=== PATIENT | male | born 1935 | race Caucasian/White ===

== ENCOUNTER 2016-09-25 18:39 | Inpatient (IN) | payer OTHER ==
[~2016-09-25] VITALS: Ht 157.5 cm; Wt 102.6 kg
[~2016-09-25 18:39] MED LIST: ASPIR-TRIN325 M1 PO; DAILY VALUE1 EACH PO; DOCUSATE SODIU100 MG PO; DUONEB 2.5-0.5 M3 ML AEROSOL; FUROSEMIDE40 MG PO; GLIPIZIDE ER2.5 MG PO; GLIPIZIDE XL10 MG PO; ISORDIL,SORBITR20 MG PO; JANTOVEN5 M1 J-TUBE; JANTOVEN5 MG PO; LASIX20 MG PO; LEVEMIR100 UNIT/2 SC; LISINOPRIL5 MG PO; LOPRESSOR25 MG PO; LOPRESSOR50 MG PO; METOPROLOL SUCC25 MG PO; METOPROLOL SUCC50 MG PO; NOVOLOG PE100 UNITS/ SC; OMEPRAZOLE MAGN20 MG PO; PANTOPRAZOLE SO40 MG PO; SPIRIVA RESPIMAT4 GM IH; TAMSULOSIN HCL0.4 MG PO; TYLENOL EXTRA500 MG PO; ZOCOR20 MG PO
[2016-09-25 19:21] LABS: HEMATOCRIT 37.6 % (38.0-50.0); MCHC 33.2 G/DL (30.0-36.0); MCV 84.3 FL (86-99); MEAN PLAT.VOLUME 9.7 uM^3 (9.0-12.4); PLATELET COUNT 157 K/uL (156-360); RBC DIS.WIDTH-CV 15.4 % (11.8-14.6); RBC DIS.WIDTH-SD 47.2 % (39-53); RED BLOOD COUNT 4.46 M/uL (4.00-5.50); WHITE BLOOD COUNT 6.7 K/uL (4.1-10.2)
[2016-09-25 19:39] LABS: CHLORIDE 107 mEq/L (99-109); POTASSIUM 4.3 mEq/L (3.7-5.4); SODIUM 138 mEq/L (136-147)
[2016-09-25 19:41] LABS: GLUCOSE 197 mg/dL (70-99)
[2016-09-25 19:42] LABS: ANION GAP 10 MEQ/L (2-14)
[2016-09-25 19:45] LABS: GFR ESTIMATE (CALCULATED) 57 mL/min/; UREA NITROGEN (BUN) 24 mg/dL (9-23)
[2016-09-25 20:45] LABS: ADD MIUA? YES; BILIRUBIN NEGATIVE; BLOOD SMALL; COLOR YELLOW ((YELLOW)); GLUCOSE (STRIP) NEGATIVE; KETONES NEGATIVE; LEUKOCYTES LARGE; NITRITE POSITIVE; PROTEIN (STRIP) NEGATIVE; SPECIFIC GRAVITY 1.013 (1.000-1.030); UROBILINOGEN 0.2 MG/DL (0.2-1.0)
[2016-09-25 21:19] LABS: BACTERIA 2+; EPITHELIAL CELLS RARE; MUCUS TRACE; RED BLOOD CELLS RARE /HPF (0-5); UCUL ADDED? YES
[2016-09-25 21:20] LABS: CASTS NONE SEEN /LPF; CRYSTALS NONE SEEN; WHITE BLOOD CELLS TNTC /HPF (0-5)
[2016-09-25 22:30] LABS: INTER. NORMALIZED RATIO 2.5; PROTHROMBIN TIME 26.1 (9.2-11.2); PTT 33.8 (25-32)
[2016-09-26] MEDS ORDERED: CIPRO500 MG PO (00:19)
[2016-09-26 03:37] LABS: EOSINOPHIL (%) 1.7 % (0-5); EOSINOPHIL COUNT 0.1 K/uL (0-0.3); IMMATURE GRANULOCYTE (%) 0.3 % (0.0-0.7); LYMPHOCYTE COUNT 1.1 K/uL (1.0-2.8); MONOCYTE (%) 8.1 % (3-12); MONOCYTE COUNT 0.5 K/uL (0-0.8); NEUTROPHIL (%) 72.7 % (45-76); NEUTROPHIL COUNT 4.8 K/uL (1.8-6.4)
[2016-09-26 04:33] VITALS: BP 130/61
[2016-09-26 08:30] VITALS: BP 138/64
[2016-09-26 08:59] LABS: POINT-OF-CARE METER ID UU14162513
[2016-09-26] MEDS ORDERED: WARFARIN SODIUM5 MG PO ×2 (10:04→10:05)
[2016-09-26] MEDS ORDERED: METOPROLOL SUCC50 MG PO (10:07)
[2016-09-26 10:46] LABS: INTER. NORMALIZED RATIO 3.2; PROTHROMBIN TIME 33.5 (9.2-11.2)
[2016-09-26 12:24] VITALS: BP 169/70
[2016-09-26 12:34] LABS: POINT-OF-CARE METER ID UU14162513
[2016-09-26] MEDS ORDERED: ISOSORBIDE MONO20 MG PO (13:27)
[2016-09-26] MEDS ORDERED: GLUCOTROL XL10 MG PO (13:28)
[2016-09-26] MEDS ORDERED: FUROSEMIDE20 MG PO (13:30)
[2016-09-26] MEDS ORDERED: OMEPRAZOLE20 MG PO (13:30)
[2016-09-26 16:00] VITALS: BP 166/79
[2016-09-26 17:47] LABS: POINT-OF-CARE METER ID UU14162513
[2016-09-26 21:39] LABS: POINT-OF-CARE METER ID UU14162513
[2016-09-26 21:46] VITALS: BP 106/59
[2016-09-27 01:01] VITALS: BP 122/68
[2016-09-27 05:43] VITALS: BP 144/82
[2016-09-27 06:48] LABS: EOSINOPHIL (%) 1.9 % (0-5); EOSINOPHIL COUNT 0.1 K/uL (0-0.3); HEMATOCRIT 36.6 % (38.0-50.0); IMMATURE GRANULOCYTE (%) 0.2 % (0.0-0.7); LYMPHOCYTE COUNT 1.4 K/uL (1.0-2.8); MCH 27.9 PG (29.0-34.0); MCHC 32.5 G/DL (30.0-36.0); MCV 85.9 FL (86-99); MEAN PLAT.VOLUME 10.6 uM^3 (9.0-12.4); MONOCYTE (%) 7.8 % (3-12); MONOCYTE COUNT 0.4 K/uL (0-0.8); NEUTROPHIL (%) 65.5 % (45-76); NEUTROPHIL COUNT 3.7 K/uL (1.8-6.4); PLATELET COUNT 155 K/uL (156-360); RBC DIS.WIDTH-CV 15.8 % (11.8-14.6); RBC DIS.WIDTH-SD 49.5 % (39-53); RED BLOOD COUNT 4.26 M/uL (4.00-5.50); WHITE BLOOD COUNT 5.7 K/uL (4.1-10.2)
[2016-09-27 07:13] LABS: ANION GAP 8 MEQ/L (2-14); CHLORIDE 107 MEQ/L (99-109); GFR ESTIMATE (CALCULATED) > 59 mL/min/; GLUCOSE 121 mg/dL (70-99); POTASSIUM 4.1 MEQ/L (3.7-5.4); SAMPLE HEMOLYSIS CHECK 0; SAMPLE ICTERIC CHECK 0; SAMPLE LIPEMIA CHECK 0; SODIUM 141 MEQ/L (136-147); UREA NITROGEN (BUN) 19 mg/dL (9-23)
[2016-09-27 07:48] LABS: POINT-OF-CARE METER ID UU13113831
[2016-09-27 08:13] VITALS: BP 147/75
[2016-09-27 11:47] VITALS: BP 144/70
[2016-09-27 12:19] LABS: POINT-OF-CARE METER ID UU13113700
[2016-09-27 16:19] VITALS: BP 140/78
[2016-09-27 17:31] LABS: POINT-OF-CARE METER ID UU13113831
[2016-09-27 21:32] LABS: POINT-OF-CARE METER ID UU13113700
[2016-09-28 00:12] VITALS: BP 136/82
[2016-09-28 04:35] VITALS: BP 132/80
[2016-09-28 06:15] LABS: INTER. NORMALIZED RATIO 2.9
[2016-09-28 08:00] VITALS: BP 183/86
[2016-09-28 12:00] VITALS: BP 118/59
[2016-09-28 16:00] VITALS: BP 134/64
[2016-09-28 21:16] LABS: POINT-OF-CARE METER ID UU13113700
[2016-09-28 21:27] VITALS: BP 146/76
[2016-09-29 06:01] VITALS: BP 132/71
[2016-09-29 07:13] LABS: INTER. NORMALIZED RATIO 3.1; PROTHROMBIN TIME 33.1 (9.2-11.2)
[2016-09-29 08:50] VITALS: BP 85/54
[2016-09-29 08:53] LABS: POINT-OF-CARE METER ID UU13113831
[2016-09-29 12:46] VITALS: BP 109/57
[2016-09-29 12:46] LABS: POINT-OF-CARE METER ID UU14162513
[2016-09-29] MEDS ORDERED: BACTRIM,SEPT1 TABLET PO (14:47)
[2016-09-29] MEDS ORDERED: COUMADIN2.5 MG PO (14:48)
[2016-09-30 10:02] LABS: POINT-OF-CARE METER ID UU13113700
== END 2016-09-29 16:21 | disposition home health service (06) | DRG 690 ==
LOC: EME 18:39 → 5WEST 09-26 01:59 → EDOF 09-26 01:59 → 5WEST 09-26 03:36
PROVIDERS: Hospitalist; Internal Medicine; Physician Assistant Medical
DX: N39.0 Urinary tract infection, site not specified (principal); I50.22 Chronic systolic (congestive) heart failure; I42.9 Cardiomyopathy, unspecified; Z68.41 Body mass index [BMI] 40.0-44.9, adult; E86.0 Dehydration; E78.5 Hyperlipidemia, unspecified; E11.9 Type 2 diabetes mellitus without complications; Z86.718 Personal history of other venous thrombosis and embolism; K21.9 Gastro-esophageal reflux disease without esophagitis; I44.7 Left bundle-branch block, unspecified; I11.0 Hypertensive heart disease with heart failure; Z96.643 Presence of artificial hip joint, bilateral; F17.220 Nicotine dependence, chewing tobacco, uncomplicated; Z91.81 History of falling; B96.20 Unspecified Escherichia coli [E. coli] as the cause of diseases classified elsewhere; R91.1 Solitary pulmonary nodule; N28.9 Disorder of kidney and ureter, unspecified; E66.01 Morbid (severe) obesity due to excess calories
CPT/HCPCS: 70450; 71020; 71250; 80048; 81003; 82948; 85025; 85027; 85610; 85730; 87040; 87077; 87086; 87186; 93005; 94799; 99202; 99281; 99285; J1335; J1815; J7030; J7050

== ENCOUNTER 2017-06-03 13:43 | Emergency (ER) | payer OTHER ==
[~2017-06-03] VITALS: Ht 165.1 cm; Wt 103.0 kg
[~2017-06-03 13:43] MED LIST changes: +BACTRIM,SEPT1 TABLET PO; +CIPRO500 MG PO; +COUMADIN2.5 MG PO; +FUROSEMIDE20 MG PO; +GLUCOTROL XL10 MG PO; +ISOSORBIDE MONO20 MG PO; +OMEPRAZOLE20 MG PO; +WARFARIN SODIUM5 MG PO
[2017-06-03 14:54] VITALS: BP 137/78
== END 2017-06-03 14:56 | disposition home or self-care (01) ==
LOC: EME 13:43
DX: H92.21 Otorrhagia, right ear (principal); H92.01 Otalgia, right ear; E78.5 Hyperlipidemia, unspecified; E11.9 Type 2 diabetes mellitus without complications; Z86.718 Personal history of other venous thrombosis and embolism; K21.9 Gastro-esophageal reflux disease without esophagitis; Z96.653 Presence of artificial knee joint, bilateral; I42.9 Cardiomyopathy, unspecified; R29.6 Repeated falls; Z96.641 Presence of right artificial hip joint; F17.220 Nicotine dependence, chewing tobacco, uncomplicated; Z79.84 Long term (current) use of oral hypoglycemic drugs
CPT/HCPCS: 99281; 99283

== ENCOUNTER 2017-07-14 13:38 | Emergency (ER) | payer OTHER ==
[~2017-07-14] VITALS: Ht 157.5 cm; Wt 144.0 kg
[2017-07-14 14:26] LABS: EOSINOPHIL (%) 5.6 % (0-5); EOSINOPHIL COUNT 0.3 K/uL (0-0.3); HEMATOCRIT 26.3 % (38.0-50.0); IMMATURE GRANULOCYTE (%) 0.2 % (0.0-0.7); INSTRUMENT ABS NEUTROPHIL CT 4.1 K/uL; LYMPHOCYTE COUNT 1.1 K/uL (1.0-2.8); MCH 27.8 PG (29.0-34.0); MCHC 32.3 G/DL (30.0-36.0); MCV 85.9 FL (86-99); MEAN PLAT.VOLUME 9.2 uM^3 (9.0-12.4); MONOCYTE (%) 8.8 % (3-12); MONOCYTE COUNT 0.5 K/uL (0-0.8); NEUTROPHIL (%) 67.3 % (45-76); NEUTROPHIL COUNT 4.1 K/uL (1.8-6.4); PLATELET COUNT 149 K/uL (156-360); RBC DIS.WIDTH-CV 14.4 % (11.8-14.6); RBC DIS.WIDTH-SD 44.7 % (39-53); RED BLOOD COUNT 3.06 M/uL (4.00-5.50); WHITE BLOOD COUNT 6.1 K/uL (4.1-10.2)
[2017-07-14 14:34] LABS: CHLORIDE 115 mEq/L (99-109); PTT 49.1 SEC (25-37); SODIUM 139 mEq/L (136-147)
[2017-07-14 14:35] LABS: MAGNESIUM 2.4 mg/dL (1.3-2.7)
[2017-07-14 14:37] LABS: GLUCOSE 88 mg/dL (70-99)
[2017-07-14 14:38] LABS: ANION GAP 8 MEQ/L (2-14); PROTHROMBIN TIME 63.6 SEC (10.2-12.9)
[2017-07-14 14:39] LABS: TOTAL BILIRUBIN 0.2 mg/dL (0.0-1.0)
[2017-07-14 14:40] LABS: ALKALINE PHOSPHATASE 45 IU/L (3-129); INTER. NORMALIZED RATIO 5.4
[2017-07-14 14:41] LABS: GFR ESTIMATE (CALCULATED) 34 mL/min/
[2017-07-14 14:42] LABS: UREA NITROGEN (BUN) 41 mg/dL (9-23)
[2017-07-14 14:47] LABS: TROP-I INTERPRETATION NEGATIVE; TROPONIN-I 0.02 ng/mL (0.0-0.30)
[2017-07-14] MEDS ORDERED: ANTIFUNGAL15 G1 TP (17:04)
[2017-07-14 17:18] VITALS: BP 101/54
== END 2017-07-14 17:36 | disposition home or self-care (01) ==
LOC: EME 13:38
PROVIDERS: Emergency Medicine
DX: S31.010A Laceration without foreign body of lower back and pelvis without penetration into retroperitoneum, initial encounter (principal); D68.9 Coagulation defect, unspecified; L30.4 Erythema intertrigo; D64.9 Anemia, unspecified; Z79.01 Long term (current) use of anticoagulants; I11.0 Hypertensive heart disease with heart failure; I50.9 Heart failure, unspecified; E11.9 Type 2 diabetes mellitus without complications; E78.5 Hyperlipidemia, unspecified; I25.2 Old myocardial infarction; K21.9 Gastro-esophageal reflux disease without esophagitis; F41.9 Anxiety disorder, unspecified; Z86.73 Personal history of transient ischemic attack (TIA), and cerebral infarction without residual deficits; Z86.718 Personal history of other venous thrombosis and embolism; Z96.653 Presence of artificial knee joint, bilateral; Z96.641 Presence of right artificial hip joint
CPT/HCPCS: 80053; 83735; 83880; 84484; 85025; 85610; 85730; 99281; 99285

== ENCOUNTER 2017-09-18 11:26 | Inpatient (IN) | payer OTHER ==
[~2017-09-18] VITALS: Ht 160 cm; Wt 102.0 kg
[~2017-09-18 11:26] MED LIST changes: +ANTIFUNGAL15 G1 TP; +METOPROLOL TART50 MG PO
[2017-09-18 12:51] LABS: HEMATOCRIT 21.9 % (38.0-50.0); MCH 21.4 PG (29.0-34.0); MCHC 30.1 G/DL (30.0-36.0); MCV 71.1 FL (86-99); NRBC (%) 0.3 /100 WBC (0-0); RBC DIS.WIDTH-CV 16.4 % (11.8-14.6); RBC DIS.WIDTH-SD 42.5 % (39-53); RED BLOOD COUNT 3.08 M/uL (4.00-5.50); WHITE BLOOD COUNT 7.6 K/uL (4.1-10.2)
[2017-09-18 12:53] LABS: CHLORIDE 99 mEq/L (99-109); POTASSIUM 4.9 mEq/L (3.7-5.4); SODIUM 126 mEq/L (136-147)
[2017-09-18 12:54] LABS: GLUCOSE 89 mg/dL (70-99)
[2017-09-18 12:57] LABS: HEMOGLOBIN 6.6 G/DL (12.5-16.6)
[2017-09-18 12:58] LABS: CREATININE 1.6 mg/dL (0.6-1.3); GFR ESTIMATE (CALCULATED) 44 mL/min/ (58.99-99999)
[2017-09-18 12:59] LABS: UREA NITROGEN (BUN) 21 mg/dL (9-23)
[2017-09-18] MEDS ORDERED: WARFARIN SODIUM5 MG PO (14:01)
[2017-09-18] MEDS ORDERED: BACTRIM,SEPT1 TABLET PO (14:02)
[2017-09-18 14:48] LABS: FOLIC ACID (FOLATE) > 22.0 NG/ML (5.0-22.0)
[2017-09-18 15:29] LABS: INTER. NORMALIZED RATIO 9.3
[2017-09-18 15:49] LABS: RETIC HGB EQUIVALENT 16.9 (28-36); RETICULOCYTE COUNT 1.8 % (0.5-1.8)
[2017-09-18 15:51] VITALS: BP 136/67
[2017-09-18 16:07] VITALS: BP 101/57
[2017-09-18 16:25] LABS: PLATELET CLUMPS PRESENT - PLATELET COUNT APPEARS ADQ.
[2017-09-18 17:46] VITALS: BP 146/65
[2017-09-18 21:42] LABS: HEMATOCRIT 24.8 % (38.0-50.0); HEMOGLOBIN 7.6 G/DL (12.5-16.6); MCV 73.4 FL (86-99)
[2017-09-18 22:03] LABS: INTER. NORMALIZED RATIO 8.3
[2017-09-18 22:05] LABS: PTT 60.2 SEC (25-37)
[2017-09-18 22:09] VITALS: BP 120/60
[2017-09-18 23:38] LABS: TROP-I INTERPRETATION NEGATIVE; TROPONIN-I 0.02 ng/mL (0.0-0.30)
[2017-09-18 23:43] LABS: CHLORIDE 98 MEQ/L (99-109); CREATININE 1.6 MG/DL (0.6-1.3); GFR ESTIMATE (CALCULATED) 44 mL/min/ (58.99-99999); GLUCOSE 54 mg/dL (70-99); POTASSIUM 4.6 MEQ/L (3.7-5.4); SODIUM 127 MEQ/L (136-147); UREA NITROGEN (BUN) 23 mg/dL (9-23)
[2017-09-19] VITALS (10 sets, daily range): BP systolic 115–145; BP diastolic 58–80
[2017-09-19 06:33] LABS: HEMATOCRIT 27.9 % (38.0-50.0); HEMOGLOBIN 8.7 G/DL (12.5-16.6); MCH 22.7 PG (29.0-34.0); MCHC 31.2 G/DL (30.0-36.0); MCV 72.7 FL (86-99); PLATELET COUNT 303 K/uL (156-360); RBC DIS.WIDTH-CV 17.3 % (11.8-14.6); RBC DIS.WIDTH-SD 45.2 % (39-53); WHITE BLOOD COUNT 9.5 K/uL (4.1-10.2)
[2017-09-19 06:38] LABS: RED BLOOD COUNT 3.84 M/uL (4.00-5.50)
[2017-09-19 06:39] LABS: CHLORIDE 99 MEQ/L (99-109); CREATININE 1.7 MG/DL (0.6-1.3); GFR ESTIMATE (CALCULATED) 41 mL/min/ (58.99-99999); GLUCOSE 65 mg/dL (70-99); POTASSIUM 4.9 MEQ/L (3.7-5.4); SODIUM 129 MEQ/L (136-147); UREA NITROGEN (BUN) 24 mg/dL (9-23)
[2017-09-19 08:07] LABS: INTER. NORMALIZED RATIO 5.5
[2017-09-19 13:11] LABS: BASE EXCESS -2.5 mEq/L (-3 to +3); BICARBONATE 22.5 mEq/L (22-26); CARBOXY HGB 1.7 % (0-5); FI02 0.21 %; METHEMOGLOBIN 1.8 % (0-1.5); PCO2 39 mm Hg (35-45); PO2 64 mm Hg (80-100); SITE RR; TOTAL RESP RATE 15 resp/min; pH 7.37 (7.35-7.45)
[2017-09-19 13:22] LABS: HEMATOCRIT 28.4 % (38.0-50.0); HEMOGLOBIN 8.6 G/DL (12.5-16.6); MCH 22.3 PG (29.0-34.0); MCHC 30.3 G/DL (30.0-36.0); MCV 73.6 FL (86-99); PLATELET COUNT 287 K/uL (156-360); RBC DIS.WIDTH-CV 17.3 % (11.8-14.6); RBC DIS.WIDTH-SD 45.7 % (39-53); RED BLOOD COUNT 3.86 M/uL (4.00-5.50); WHITE BLOOD COUNT 9.3 K/uL (4.1-10.2)
[2017-09-19 13:49] LABS: INTER. NORMALIZED RATIO 3.8
[2017-09-19 13:49] LABS: APPEARANCE CLEAR ((CLEAR)); BILIRUBIN NEGATIVE; BLOOD MODERATE; COLOR YELLOW ((YELLOW)); GLUCOSE (STRIP) NEGATIVE; KETONES NEGATIVE; LEUKOCYTES LARGE; NITRITE POSITIVE; PROTEIN (STRIP) NEGATIVE; SPECIFIC GRAVITY 1.006 (1.000-1.030); UROBILINOGEN 0.2 MG/DL (0.2-1.0)
[2017-09-19 13:58] LABS: BACTERIA 1+ /HPF; EPITHELIAL CELLS NONE SEEN /HPF; MUCUS TRACE /LPF; RED BLOOD CELLS 0-5 /HPF (0-5); WHITE BLOOD CELLS 20-30 /HPF (0-5)
[2017-09-19 16:56] LABS: BENZODIAZEPINES, URINE SCREEN Negative (200 ng/mL)
[2017-09-20 05:48] LABS: IMM.RETIC FRACTION 33.4 % (3-19); RETIC HGB EQUIVALENT 20.2 (28-36)
[2017-09-20 06:15] LABS: BASOPHIL (%) 0.2 % (0-1); EOSINOPHIL (%) 0.8 % (0-5); EOSINOPHIL COUNT 0.1 K/uL (0-0.3); HEMATOCRIT 27.6 % (38.0-50.0); HEMOGLOBIN 8.5 G/DL (12.5-16.6); IMMATURE GRANULOCYTE (%) 0.4 % (0.0-0.7); LYMPHOCYTE COUNT 0.9 K/uL (1.0-2.8); MCH 22.7 PG (29.0-34.0); MCHC 30.8 G/DL (30.0-36.0); MCV 73.8 FL (86-99); MONOCYTE (%) 12.5 % (3-12); MONOCYTE COUNT 1.2 K/uL (0-0.8); NEUTROPHIL (%) 76.1 % (45-76); NEUTROPHIL COUNT 7.2 K/uL (1.8-6.4); PLATELET COUNT 263 K/uL (156-360); RBC DIS.WIDTH-CV 17.7 % (11.8-14.6); RBC DIS.WIDTH-SD 46.5 % (39-53); RED BLOOD COUNT 3.74 M/uL (4.00-5.50); WHITE BLOOD COUNT 9.4 K/uL (4.1-10.2)
[2017-09-20 06:16] LABS: RETICULOCYTE COUNT 2.5 % (0.5-1.8)
[2017-09-20 06:17] LABS: INTER. NORMALIZED RATIO 4.3
[2017-09-20 07:38] VITALS: BP 129/62
[2017-09-20 08:46] LABS: ALBUMIN 3.4 G/DL (3.2-4.8); ALKALINE PHOSPHATASE 75 IU/L (3-129); ALT (GPT) 26 IU/L (3-49); AST (GOT) 34 IU/L (2-34); CHLORIDE 103 MEQ/L (99-109); CREATININE 1.5 MG/DL (0.6-1.3); GFR ESTIMATE (CALCULATED) 48 mL/min/ (58.99-99999); SODIUM 134 MEQ/L (136-147); TOTAL BILIRUBIN 0.9 MG/DL (0.0-1.0); TOTAL PROTEIN 5.9 G/DL (6.4-8.3); UREA NITROGEN (BUN) 21 mg/dL (9-23)
[2017-09-20 08:51] LABS: GLUCOSE 107 mg/dL (70-99)
[2017-09-20 09:10] LABS: THYROTROPIN (TSH) 2.9 MIU/L (0.4-5.5)
[2017-09-20 15:12] LABS: INTER. NORMALIZED RATIO 4.2
[2017-09-20 15:53] LABS: HEMOGLOBIN 8.5 G/DL (12.5-16.6); MCH 22.5 PG (29.0-34.0); MCHC 30.4 G/DL (30.0-36.0); MCV 74.3 FL (86-99); PLATELET COUNT 283 K/uL (156-360); RBC DIS.WIDTH-CV 17.7 % (11.8-14.6); RBC DIS.WIDTH-SD 46.9 % (39-53); RED BLOOD COUNT 3.77 M/uL (4.00-5.50); WHITE BLOOD COUNT 8.2 K/uL (4.1-10.2)
[2017-09-20 17:04] VITALS: BP 115/54
[2017-09-20 23:40] VITALS: BP 99/50
[2017-09-21 05:53] LABS: BASOPHIL (%) 0.4 % (0-1); EOSINOPHIL (%) 2.1 % (0-5); EOSINOPHIL COUNT 0.2 K/uL (0-0.3); HEMATOCRIT 26.3 % (38.0-50.0); HEMOGLOBIN 7.9 G/DL (12.5-16.6); IMMATURE GRANULOCYTE (%) 0.7 % (0.0-0.7); LYMPHOCYTE (%) 10.9 % (15-42); LYMPHOCYTE COUNT 0.8 K/uL (1.0-2.8); MCH 22.4 PG (29.0-34.0); MCV 74.5 FL (86-99); MONOCYTE (%) 11.7 % (3-12); MONOCYTE COUNT 0.9 K/uL (0-0.8); NEUTROPHIL (%) 74.2 % (45-76); NEUTROPHIL COUNT 5.6 K/uL (1.8-6.4); PLATELET COUNT 248 K/uL (156-360); RBC DIS.WIDTH-CV 18.5 % (11.8-14.6); RBC DIS.WIDTH-SD 49.2 % (39-53); RED BLOOD COUNT 3.53 M/uL (4.00-5.50); WHITE BLOOD COUNT 7.5 K/uL (4.1-10.2)
[2017-09-21 06:01] LABS: INTER. NORMALIZED RATIO 3.8
[2017-09-21 06:32] LABS: ALKALINE PHOSPHATASE 68 IU/L (3-129); ALT (GPT) 21 IU/L (3-49); AST (GOT) 22 IU/L (2-34); CHLORIDE 106 MEQ/L (99-109); CREATININE 1.4 MG/DL (0.6-1.3); GFR ESTIMATE (CALCULATED) 52 mL/min/ (58.99-99999); GLUCOSE 162 mg/dL (70-99); POTASSIUM 4.5 MEQ/L (3.7-5.4); SODIUM 136 MEQ/L (136-147); TOTAL BILIRUBIN 0.7 MG/DL (0.0-1.0); TOTAL PROTEIN 5.3 G/DL (6.4-8.3); UREA NITROGEN (BUN) 18 mg/dL (9-23)
[2017-09-21 07:50] VITALS: BP 121/57
[2017-09-21 14:10] LABS: HEMATOCRIT 25.8 % (38.0-50.0); HEMOGLOBIN 7.7 G/DL (12.5-16.6); MCH 22.4 PG (29.0-34.0); MCHC 29.8 G/DL (30.0-36.0); MCV 75.2 FL (86-99); PLATELET COUNT 239 K/uL (156-360); RBC DIS.WIDTH-CV 18.9 % (11.8-14.6); RBC DIS.WIDTH-SD 50.4 % (39-53); RED BLOOD COUNT 3.43 M/uL (4.00-5.50); WHITE BLOOD COUNT 8.4 K/uL (4.1-10.2)
[2017-09-21 14:14] LABS: INTER. NORMALIZED RATIO 3.8
[2017-09-21 16:00] VITALS: BP 102/54
[2017-09-21 20:55] LABS: C DIFF TOXIN POSITIVE (NEGATIVE)
[2017-09-21 22:00] LABS: STOOL OCCULT BLD 1ST SPECIMEN NEGATIVE
[2017-09-21 23:30] VITALS: BP 85/49
[2017-09-22] VITALS (9 sets, daily range): BP systolic 102–127; BP diastolic 54–71
[2017-09-22 06:39] LABS: BASOPHIL (%) 0.5 % (0-1); EOSINOPHIL (%) 4.7 % (0-5); EOSINOPHIL COUNT 0.4 K/uL (0-0.3); HEMATOCRIT 29.3 % (38.0-50.0); HEMOGLOBIN 8.7 G/DL (12.5-16.6); IMMATURE GRANULOCYTE (%) 0.6 % (0.0-0.7); LYMPHOCYTE (%) 10.7 % (15-42); LYMPHOCYTE COUNT 0.8 K/uL (1.0-2.8); MCHC 29.7 G/DL (30.0-36.0); MCV 77.3 FL (86-99); MONOCYTE (%) 11.8 % (3-12); MONOCYTE COUNT 0.9 K/uL (0-0.8); NEUTROPHIL (%) 71.7 % (45-76); NEUTROPHIL COUNT 5.6 K/uL (1.8-6.4); PLATELET COUNT 237 K/uL (156-360); RBC DIS.WIDTH-CV 19.1 % (11.8-14.6); RBC DIS.WIDTH-SD 52.6 % (39-53); RED BLOOD COUNT 3.79 M/uL (4.00-5.50); WHITE BLOOD COUNT 7.9 K/uL (4.1-10.2)
[2017-09-22 06:56] LABS: INTER. NORMALIZED RATIO 3.1
[2017-09-22 07:12] LABS: ALBUMIN 3.1 G/DL (3.2-4.8); ALKALINE PHOSPHATASE 68 IU/L (3-129); ALT (GPT) 20 IU/L (3-49); AST (GOT) 16 IU/L (2-34); CHLORIDE 106 MEQ/L (99-109); CREATININE 1.3 MG/DL (0.6-1.3); GFR ESTIMATE (CALCULATED) 56 mL/min/ (58.99-99999); GLUCOSE 143 mg/dL (70-99); POTASSIUM 4.5 MEQ/L (3.7-5.4); SODIUM 139 MEQ/L (136-147); TOTAL BILIRUBIN 0.6 MG/DL (0.0-1.0); TOTAL PROTEIN 5.3 G/DL (6.4-8.3); UREA NITROGEN (BUN) 16 mg/dL (9-23)
[2017-09-22 13:16] LABS: STOOL OCCULT BLD 1ST SPECIMEN NEGATIVE
[2017-09-22 13:24] LABS: STOOL OCCULT BLD 1ST SPECIMEN NEGATIVE
[2017-09-23 06:03] LABS: BASOPHIL (%) 0.3 % (0-1); EOSINOPHIL (%) 2.8 % (0-5); EOSINOPHIL COUNT 0.3 K/uL (0-0.3); HEMATOCRIT 30.1 % (38.0-50.0); IMMATURE GRANULOCYTE (%) 0.8 % (0.0-0.7); LYMPHOCYTE (%) 7.3 % (15-42); LYMPHOCYTE COUNT 0.7 K/uL (1.0-2.8); MCH 22.8 PG (29.0-34.0); MCHC 29.9 G/DL (30.0-36.0); MCV 76.4 FL (86-99); MONOCYTE (%) 9.7 % (3-12); MONOCYTE COUNT 0.9 K/uL (0-0.8); NEUTROPHIL (%) 79.1 % (45-76); PLATELET COUNT 261 K/uL (156-360); RBC DIS.WIDTH-CV 19.8 % (11.8-14.6); RBC DIS.WIDTH-SD 52.4 % (39-53); RED BLOOD COUNT 3.94 M/uL (4.00-5.50); WHITE BLOOD COUNT 8.9 K/uL (4.1-10.2)
[2017-09-23 06:25] LABS: INTER. NORMALIZED RATIO 2.6
[2017-09-23 06:56] LABS: CHLORIDE 106 MEQ/L (99-109); CREATININE 1.1 MG/DL (0.6-1.3); GFR ESTIMATE (CALCULATED) > 59 mL/min/ (58.99-99999); GLUCOSE 157 mg/dL (70-99); POTASSIUM 4.3 MEQ/L (3.7-5.4); SODIUM 137 MEQ/L (136-147); UREA NITROGEN (BUN) 15 mg/dL (9-23)
[2017-09-23 08:00] VITALS: BP 118/68
[2017-09-23 12:00] VITALS: BP 110/60
[2017-09-23 16:00] VITALS: BP 120/58
[2017-09-24 00:09] VITALS: BP 158/70
[2017-09-24 06:02] LABS: HEMATOCRIT 29.8 % (38.0-50.0); HEMOGLOBIN 8.8 G/DL (12.5-16.6); MCH 22.9 PG (29.0-34.0); MCHC 29.5 G/DL (30.0-36.0); MCV 77.4 FL (86-99); PLATELET COUNT 260 K/uL (156-360); RBC DIS.WIDTH-CV 20.9 % (11.8-14.6); RBC DIS.WIDTH-SD 55.5 % (39-53); RED BLOOD COUNT 3.85 M/uL (4.00-5.50)
[2017-09-24 06:14] LABS: BASOPHIL (%) 0.6 % (0-1); EOSINOPHIL (%) 6.5 % (0-5); EOSINOPHIL COUNT 0.5 K/uL (0-0.3); IMMATURE GRANULOCYTE (%) 0.6 % (0.0-0.7); LYMPHOCYTE (%) 10.8 % (15-42); LYMPHOCYTE COUNT 0.8 K/uL (1.0-2.8); MONOCYTE (%) 9.5 % (3-12); MONOCYTE COUNT 0.7 K/uL (0-0.8); NEUTROPHIL COUNT 5.1 K/uL (1.8-6.4)
[2017-09-24 06:18] LABS: INTER. NORMALIZED RATIO 2.3
[2017-09-24 06:27] LABS: CHLORIDE 111 MEQ/L (99-109); CREATININE 1.1 MG/DL (0.6-1.3); GFR ESTIMATE (CALCULATED) > 59 mL/min/ (58.99-99999); GLUCOSE 145 mg/dL (70-99); POTASSIUM 4.5 MEQ/L (3.7-5.4); SODIUM 143 MEQ/L (136-147); UREA NITROGEN (BUN) 13 mg/dL (9-23)
[2017-09-24 07:44] VITALS: BP 135/67
[2017-09-24 15:55] VITALS: BP 133/67
[2017-09-25 00:29] VITALS: BP 143/63
[2017-09-25 06:07] LABS: INTER. NORMALIZED RATIO 1.9
[2017-09-25 07:45] VITALS: BP 139/65
[2017-09-25 15:34] VITALS: BP 127/65
[2017-09-25 22:35] VITALS: BP 135/62
[2017-09-25 23:24] VITALS: BP 150/80
[2017-09-25 23:59] VITALS: BP 154/79
[2017-09-26 06:06] LABS: INTER. NORMALIZED RATIO 2.3
[2017-09-26 07:53] VITALS: BP 150/75
[2017-09-26 10:48] LABS: BASOPHIL (%) 0.7 % (0-1); BASOPHIL COUNT 0.1 K/uL (0-0.1); EOSINOPHIL (%) 3.2 % (0-5); EOSINOPHIL COUNT 0.3 K/uL (0-0.3); HEMATOCRIT 33.9 % (38.0-50.0); HEMOGLOBIN 9.8 G/DL (12.5-16.6); IMMATURE GRANULOCYTE (%) 0.5 % (0.0-0.7); LYMPHOCYTE (%) 12.8 % (15-42); LYMPHOCYTE COUNT 1.2 K/uL (1.0-2.8); MCHC 28.9 G/DL (30.0-36.0); MCV 79.4 FL (86-99); MONOCYTE (%) 7.4 % (3-12); MONOCYTE COUNT 0.7 K/uL (0-0.8); NEUTROPHIL (%) 75.4 % (45-76); NEUTROPHIL COUNT 6.9 K/uL (1.8-6.4); PLATELET COUNT 311 K/uL (156-360); RBC DIS.WIDTH-CV 21.7 % (11.8-14.6); RBC DIS.WIDTH-SD 59.8 % (39-53); RED BLOOD COUNT 4.27 M/uL (4.00-5.50); WHITE BLOOD COUNT 9.1 K/uL (4.1-10.2)
[2017-09-26 11:08] LABS: CHLORIDE 104 MEQ/L (99-109); POTASSIUM 3.8 MEQ/L (3.7-5.4); SODIUM 139 MEQ/L (136-147)
[2017-09-26 11:14] LABS: GFR ESTIMATE (CALCULATED) > 59 mL/min/ (58.99-99999); GLUCOSE 208 mg/dL (70-99); UREA NITROGEN (BUN) 20 mg/dL (9-23)
[2017-09-26 16:21] VITALS: BP 139/69
[2017-09-26 21:30] VITALS: BP 150/78
[2017-09-27 00:14] VITALS: BP 122/72
[2017-09-27 06:36] LABS: INTER. NORMALIZED RATIO 2.8
[2017-09-27 08:32] VITALS: BP 137/69
[2017-09-27 16:34] VITALS: BP 128/68
[2017-09-27 23:35] VITALS: BP 131/73
[2017-09-28 05:41] LABS: INTER. NORMALIZED RATIO 2.8
[2017-09-28 07:00] VITALS: BP 128/87
[2017-09-28 16:01] VITALS: BP 135/70
[2017-09-28 23:26] VITALS: BP 130/69
[2017-09-29 03:57] VITALS: BP 161/78
[2017-09-29 06:18] LABS: BASOPHIL (%) 0.4 % (0-1); EOSINOPHIL (%) 0.5 % (0-5); HEMATOCRIT 33.5 % (38.0-50.0); HEMOGLOBIN 10.2 G/DL (12.5-16.6); IMMATURE GRANULOCYTE (%) 0.8 % (0.0-0.7); LYMPHOCYTE (%) 14.9 % (15-42); LYMPHOCYTE COUNT 1.2 K/uL (1.0-2.8); MCH 24.3 PG (29.0-34.0); MCHC 30.4 G/DL (30.0-36.0); MCV 79.8 FL (86-99); MONOCYTE (%) 8.8 % (3-12); MONOCYTE COUNT 0.7 K/uL (0-0.8); NEUTROPHIL (%) 74.6 % (45-76); NEUTROPHIL COUNT 5.8 K/uL (1.8-6.4); PLATELET COUNT 242 K/uL (156-360); RBC DIS.WIDTH-CV 23.4 % (11.8-14.6); RBC DIS.WIDTH-SD 66.5 % (39-53); WHITE BLOOD COUNT 7.7 K/uL (4.1-10.2)
[2017-09-29 06:49] LABS: CHLORIDE 102 MEQ/L (99-109); CREATININE 1.1 MG/DL (0.6-1.3); GFR ESTIMATE (CALCULATED) > 59 mL/min/ (58.99-99999); GLUCOSE 190 mg/dL (70-99); POTASSIUM 4.2 MEQ/L (3.7-5.4); SODIUM 139 MEQ/L (136-147); UREA NITROGEN (BUN) 21 mg/dL (9-23)
[2017-09-29 07:30] VITALS: BP 143/88
[2017-09-29 11:45] VITALS: BP 132/68
[2017-09-30 03:08] VITALS: BP 132/68
[2017-09-30 06:18] VITALS: BP 144/70
[2017-09-30 07:30] VITALS: BP 124/64
[2017-09-30 07:32] LABS: INTER. NORMALIZED RATIO 2.9
[2017-09-30] MEDS ORDERED: METRONIDAZOLE500 MG PO (09:27)
[2017-09-30] MEDS ORDERED: CEFDINIR300 MG PO (09:27)
[2017-09-30] MEDS ORDERED: FERROUS SULFAT325 MG PO (09:28)
[2017-09-30] MEDS ORDERED: TAMSULOSIN HCL0.4 MG PO (09:28)
[2017-09-30] MEDS ORDERED: LOSARTAN POTASS25 MG PO (09:29)
[2017-09-30] MEDS ORDERED: QUETIAPINE FUMA25 MG PO (09:29)
[2017-09-30] MEDS ORDERED: GLIPIZIDE5 MG PO (09:29)
[2017-09-30] MEDS ORDERED: COUMADIN1 MG PO (09:31)
[2017-09-30] MEDS ORDERED: LEVEMIR100 UNIT/2 SC (09:43)
== END 2017-09-30 11:19 | DRG 862 ==
LOC: EME 11:26 → EDOF 14:42 → 5EAST 14:42 → ENRESERV 14:51 → 5EAST 17:16 → ENRESERV 09-19 15:39 → 5EAST 09-19 15:40 → ENRESERV 09-20 10:40 → 5EAST 09-20 10:43 → ENPENDDIS 09-30 11:00 → 5EAST 09-30 11:19
PROVIDERS: Emergency Medicine; Hospitalist; Internal Medicine; Specialist; Student in an Organized Health Care Education/Training Program
PROC: 30233N1 Transfusion of Nonautologous Red Blood Cells into Peripheral Vein, Percutaneous Approach (ICD-10-PCS; principal; 2017-09-18)
DX: T81.4XXA Infection following a procedure, initial encounter (principal); I82.401 Acute embolism and thrombosis of unspecified deep veins of right lower extremity; N17.9 Acute kidney failure, unspecified; A04.72 Enterocolitis due to Clostridium difficile, not specified as recurrent; G93.40 Encephalopathy, unspecified; L03.221 Cellulitis of neck; E87.1 Hypo-osmolality and hyponatremia; I50.22 Chronic systolic (congestive) heart failure; I13.0 Hypertensive heart and chronic kidney disease with heart failure and stage 1 through stage 4 chronic kidney disease, or unspecified chronic kidney disease; R13.10 Dysphagia, unspecified; E11.22 Type 2 diabetes mellitus with diabetic chronic kidney disease; E11.65 Type 2 diabetes mellitus with hyperglycemia; N13.30 Unspecified hydronephrosis; E87.2 Acidosis; E78.5 Hyperlipidemia, unspecified; I89.0 Lymphedema, not elsewhere classified; R09.02 Hypoxemia; R53.1 Weakness; N39.0 Urinary tract infection, site not specified; J00 Acute nasopharyngitis [common cold]; R29.6 Repeated falls; G62.9 Polyneuropathy, unspecified; G93.41 Metabolic encephalopathy; N40.1 Benign prostatic hyperplasia with lower urinary tract symptoms; J69.0 Pneumonitis due to inhalation of food and vomit; Z96.653 Presence of artificial knee joint, bilateral; H66.90 Otitis media, unspecified, unspecified ear; M10.9 Gout, unspecified; Z96.641 Presence of right artificial hip joint; F03.90 Unspecified dementia, unspecified severity, without behavioral disturbance, psychotic disturbance, mood disturbance, and anxiety; T38.0X5A Adverse effect of glucocorticoids and synthetic analogues, initial encounter; T45.515A Adverse effect of anticoagulants, initial encounter; J98.01 Acute bronchospasm; I44.7 Left bundle-branch block, unspecified; I87.2 Venous insufficiency (chronic) (peripheral); E61.1 Iron deficiency; N18.3 Chronic kidney disease, stage 3 (moderate); I25.2 Old myocardial infarction; Z79.4 Long term (current) use of insulin; R79.1 Abnormal coagulation profile; K21.9 Gastro-esophageal reflux disease without esophagitis; B96.20 Unspecified Escherichia coli [E. coli] as the cause of diseases classified elsewhere; E66.9 Obesity, unspecified; J98.11 Atelectasis; Z66 Do not resuscitate; Z68.39 Body mass index [BMI] 39.0-39.9, adult; Z79.01 Long term (current) use of anticoagulants; Z85.828 Personal history of other malignant neoplasm of skin; Z87.440 Personal history of urinary (tract) infections; Z86.718 Personal history of other venous thrombosis and embolism; Z86.73 Personal history of transient ischemic attack (TIA), and cerebral infarction without residual deficits; Z82.49 Family history of ischemic heart disease and other diseases of the circulatory system
CPT/HCPCS: 36600; 70450; 70490; 71010; 71020; 74176; 74230; 76770; 77336; 77412; 80048; 80048 91; 80053; 80202; 80306 90; 81003; 82140; 82272; 82533 91; 82607; 82728; 82746; 82803; 82948; 83516 90; 83930; 83935; 84300; 84443; 84466; 84484; 85014; 85018; 85025; 85027; 85046; 85610; 85730; 86850; 86900; 86901; 86920; 87040; 87070; 87075; 87077; 87086; 87177; 87186; 87205; 87493; 87502; 87506; 92523 GN; 92526 GN; 92610 GN; 92611 GN; 93970; 94640; 94640 76; 94667; 94799; 97530 GO; 97530 GP; 97532 GN; 99202; 99281; 99285; A6214; J0690; J0696; J1335; J1756; J1815; J1940; J2405; J3370; J3430; J7050; J7512; P9016; S0030

== ENCOUNTER 2017-10-06 15:35 | Emergency (ER) | payer OTHER ==
[~2017-10-06] VITALS: Ht 167.6 cm; Wt 96.5 kg
[~2017-10-06 15:35] MED LIST changes: +CEFDINIR300 MG PO; +COUMADIN1 MG PO; +FERROUS SULFAT325 MG PO; +GLIPIZIDE5 MG PO; +LOSARTAN POTASS25 MG PO; +METRONIDAZOLE500 MG PO; +QUETIAPINE FUMA25 MG PO
[2017-10-06 18:03] LABS: HEMATOCRIT 35.9 % (38.0-50.0); HEMOGLOBIN 11.2 G/DL (12.5-16.6); MCH 24.8 PG (29.0-34.0); MCHC 31.2 G/DL (30.0-36.0); MCV 79.4 FL (86-99); PLATELET COUNT 281 K/uL (156-360); RBC DIS.WIDTH-CV 24.5 % (11.8-14.6); RBC DIS.WIDTH-SD 69.2 % (39-53); RED BLOOD COUNT 4.52 M/uL (4.00-5.50); WHITE BLOOD COUNT 9.8 K/uL (4.1-10.2)
[2017-10-06 18:11] LABS: CHLORIDE 95 mEq/L (99-109); POTASSIUM 4.6 mEq/L (3.7-5.4); SODIUM 130 mEq/L (136-147)
[2017-10-06 18:13] LABS: GLUCOSE 390 mg/dL (70-99); TOTAL PROTEIN 6.6 g/dL (6.4-8.3)
[2017-10-06 18:16] LABS: ALKALINE PHOSPHATASE 119 IU/L (3-129)
[2017-10-06 18:17] LABS: CREATININE 1.2 mg/dL (0.6-1.3); GFR ESTIMATE (CALCULATED) > 59 mL/min/ (58.99-99999)
[2017-10-06 18:18] LABS: AST (GOT) 54 IU/L (2-34); UREA NITROGEN (BUN) 20 mg/dL (9-23)
[2017-10-06 18:19] LABS: ALT (GPT) 40 IU/L (3-49)
[2017-10-06 18:28] LABS: TOTAL BILIRUBIN 0.4 mg/dL (0.0-1.0)
[2017-10-06 22:39] VITALS: BP 127/79
[2017-10-07] MEDS ORDERED: COUMADIN5 MG PO (13:46)
[2017-10-07] MEDS ORDERED: LEVEMIR FL100 UNIT/1 SC (13:47)
[2017-10-07] MEDS ORDERED: NOVOLOG PE100 UNITS/ SC (13:53)
[2017-10-07] MEDS ORDERED: COMPAZINE10 MG PO (13:54)
== END 2017-10-06 22:42 ==
LOC: EME 15:35
PROVIDERS: Emergency Medicine
DX: S20.219A Contusion of unspecified front wall of thorax, initial encounter (principal); N40.0 Benign prostatic hyperplasia without lower urinary tract symptoms; M48.02 Spinal stenosis, cervical region; R93.8 Abnormal findings on diagnostic imaging of other specified body structures; I11.0 Hypertensive heart disease with heart failure; I50.9 Heart failure, unspecified; K21.9 Gastro-esophageal reflux disease without esophagitis; J44.9 Chronic obstructive pulmonary disease, unspecified; E78.5 Hyperlipidemia, unspecified; I25.2 Old myocardial infarction; M10.9 Gout, unspecified; F41.9 Anxiety disorder, unspecified; W18.30XA Fall on same level, unspecified, initial encounter; Z86.718 Personal history of other venous thrombosis and embolism; Z86.73 Personal history of transient ischemic attack (TIA), and cerebral infarction without residual deficits; Z79.82 Long term (current) use of aspirin; Z96.0 Presence of urogenital implants; Z96.653 Presence of artificial knee joint, bilateral; Z96.641 Presence of right artificial hip joint; Z88.5 Allergy status to narcotic agent
CPT/HCPCS: 70450; 71045; 72125; 74177; 80053; 85027; 85610; 85730; 99281; 99285

== ENCOUNTER 2017-10-07 11:30 | Observation (INO) | payer OTHER ==
[~2017-10-07] VITALS: Ht 167.6 cm; Wt 90.8 kg
[2017-10-07 12:17] LABS: BASOPHIL (%) 0.3 % (0-1); EOSINOPHIL (%) 0.4 % (0-5); HEMATOCRIT 35.3 % (38.0-50.0); HEMOGLOBIN 10.8 G/DL (12.5-16.6); IMMATURE GRANULOCYTE (%) 0.7 % (0.0-0.7); LYMPHOCYTE COUNT 0.7 K/uL (1.0-2.8); MCH 24.3 PG (29.0-34.0); MCHC 30.6 G/DL (30.0-36.0); MCV 79.3 FL (86-99); MONOCYTE COUNT 0.9 K/uL (0-0.8); NEUTROPHIL (%) 84.6 % (45-76); NEUTROPHIL COUNT 9.7 K/uL (1.8-6.4); PLATELET COUNT 219 K/uL (156-360); RBC DIS.WIDTH-CV 24.6 % (11.8-14.6); RBC DIS.WIDTH-SD 70.4 % (39-53); RED BLOOD COUNT 4.45 M/uL (4.00-5.50); WHITE BLOOD COUNT 11.4 K/uL (4.1-10.2)
[2017-10-07 12:36] LABS: TROP-I INTERPRETATION NEGATIVE; TROPONIN-I 0.02 ng/mL (0.0-0.30)
[2017-10-07 12:46] LABS: INTER. NORMALIZED RATIO 2.2
[2017-10-07 12:46] LABS: APPEARANCE CLOUDY ((CLEAR)); BILIRUBIN NEGATIVE; BLOOD SMALL; COLOR AMBER ((YELLOW)); GLUCOSE (STRIP) 50; KETONES NEGATIVE; LEUKOCYTES LARGE; NITRITE NEGATIVE; PROTEIN (STRIP) 100; SPECIFIC GRAVITY 1.042 (1.000-1.030); UROBILINOGEN 0.2 MG/DL (0.2-1.0)
[2017-10-07 12:48] LABS: CHLORIDE 99 mEq/L (99-109); POTASSIUM 4.7 mEq/L (3.7-5.4); PTT 33.8 SEC (25-37); SODIUM 131 mEq/L (136-147)
[2017-10-07 12:49] LABS: GLUCOSE 356 mg/dL (70-99)
[2017-10-07 12:53] LABS: CREATININE 1.2 mg/dL (0.6-1.3); GFR ESTIMATE (CALCULATED) > 59 mL/min/ (58.99-99999)
[2017-10-07 12:54] LABS: UREA NITROGEN (BUN) 19 mg/dL (9-23)
[2017-10-07 12:58] LABS: BACTERIA NONE SEEN /HPF; EPITHELIAL CELLS NONE SEEN /HPF; HYALINE CASTS 0-5 /LPF; MUCUS TRACE /LPF; RED BLOOD CELLS 20-30 /HPF (0-5); UCUL ADDED? YES; WHITE BLOOD CELLS TNTC /HPF (0-5)
[2017-10-07] MEDS ORDERED: COUMADIN5 MG PO (13:46)
[2017-10-07] MEDS ORDERED: LEVEMIR FL100 UNIT/1 SC (13:47)
[2017-10-07] MEDS ORDERED: NOVOLOG PE100 UNITS/ SC (13:53)
[2017-10-07] MEDS ORDERED: COMPAZINE10 MG PO (13:54)
[2017-10-07 17:20] VITALS: BP 148/75
[2017-10-07 21:00] VITALS: BP 143/68
[2017-10-08] VITALS (7 sets, daily range): BP systolic 120–164; BP diastolic 62–87
[2017-10-08 05:31] LABS: BASOPHIL (%) 0.5 % (0-1); EOSINOPHIL (%) 2.2 % (0-5); EOSINOPHIL COUNT 0.2 K/uL (0-0.3); HEMATOCRIT 34.3 % (38.0-50.0); HEMOGLOBIN 10.3 G/DL (12.5-16.6); IMMATURE GRANULOCYTE (%) 0.8 % (0.0-0.7); LYMPHOCYTE (%) 7.8 % (15-42); LYMPHOCYTE COUNT 0.7 K/uL (1.0-2.8); MCH 23.8 PG (29.0-34.0); MCV 79.2 FL (86-99); MONOCYTE (%) 8.3 % (3-12); MONOCYTE COUNT 0.7 K/uL (0-0.8); NEUTROPHIL (%) 80.4 % (45-76); NEUTROPHIL COUNT 6.7 K/uL (1.8-6.4); PLATELET COUNT 247 K/uL (156-360); RBC DIS.WIDTH-CV 24.2 % (11.8-14.6); RBC DIS.WIDTH-SD 68.7 % (39-53); RED BLOOD COUNT 4.33 M/uL (4.00-5.50); WHITE BLOOD COUNT 8.4 K/uL (4.1-10.2)
[2017-10-08 05:35] LABS: INTER. NORMALIZED RATIO 2.3
[2017-10-08 05:55] LABS: CHLORIDE 100 MEQ/L (99-109); GFR ESTIMATE (CALCULATED) > 59 mL/min/ (58.99-99999); GLUCOSE 244 mg/dL (70-99); POTASSIUM 4.3 MEQ/L (3.7-5.4); SODIUM 135 MEQ/L (136-147); UREA NITROGEN (BUN) 13 mg/dL (9-23)
[2017-10-09 05:47] LABS: INTER. NORMALIZED RATIO 2.6
[2017-10-09] MEDS ORDERED: METOPROLOL SUCC25 MG PO (08:55)
[2017-10-09 08:57] VITALS: BP 181/88
[2017-10-09 11:54] VITALS: BP 165/74
== END 2017-10-09 15:43 ==
LOC: EME 11:30 → 5WEST 13:28 → EDOF 13:28 → ENRESERV 13:34 → 5WEST 16:18 → ENPENDDIS 10-09 → 5WEST 10-09 15:43
PROVIDERS: Emergency Medicine; Hospitalist; Nurse Practitioner Adult Health
DX: G93.40 Encephalopathy, unspecified (principal); N39.0 Urinary tract infection, site not specified; I82.441 Acute embolism and thrombosis of right tibial vein; Z86.718 Personal history of other venous thrombosis and embolism; E11.9 Type 2 diabetes mellitus without complications; E87.1 Hypo-osmolality and hyponatremia; Z87.440 Personal history of urinary (tract) infections; R26.89 Other abnormalities of gait and mobility; R29.6 Repeated falls; I11.0 Hypertensive heart disease with heart failure; I50.9 Heart failure, unspecified; K21.9 Gastro-esophageal reflux disease without esophagitis; E66.9 Obesity, unspecified; I51.7 Cardiomegaly; I44.7 Left bundle-branch block, unspecified; Z96.642 Presence of left artificial hip joint; Z96.652 Presence of left artificial knee joint; F17.220 Nicotine dependence, chewing tobacco, uncomplicated; Z82.49 Family history of ischemic heart disease and other diseases of the circulatory system; Z86.19 Personal history of other infectious and parasitic diseases; I25.2 Old myocardial infarction; J44.9 Chronic obstructive pulmonary disease, unspecified; Z86.73 Personal history of transient ischemic attack (TIA), and cerebral infarction without residual deficits; Z85.828 Personal history of other malignant neoplasm of skin; F41.9 Anxiety disorder, unspecified; F32.9 Major depressive disorder, single episode, unspecified; M10.9 Gout, unspecified; Z46.6 Encounter for fitting and adjustment of urinary device; Z79.4 Long term (current) use of insulin; Z79.01 Long term (current) use of anticoagulants; Z88.5 Allergy status to narcotic agent; Z80.9 Family history of malignant neoplasm, unspecified
CPT/HCPCS: 70450; 71045; 77412; 80048; 81003; 84484; 85025; 85610; 85730; 87040; 87077; 87086; 87186; 87641; 92610 GN; 93005; 93971; 99281; 99284; G0378; J0696; J7030